=== PATIENT | female | born 1975 | race Hispanic/Latino ===

== ENCOUNTER 2020-01-17 18:29 | Emergency (ER) | payer BC ==
[~2020-01-17 18:29] MED LIST: Iopamidol-370 76% 500 ML 1 ML ONE
--- NOTE | 2020-01-17 18:53 | RAD ---
EXAM: Single view of the chest HISTORY: Chest pain COMPARISON: 10/11/2019 FINDINGS: Single view of the chest shows a normal sized cardiomediastinal silhouette. Increased inte rstitial lung markings are present. There is no evidence of consolidation, mass, or pleural effusion. No acute osseous abnormality. Cholecystectomy clips are seen. IMPRESSION: No evidence of acute cardiopulmonary disease
[2020-01-17 19:03] LABS: #Eosinphils 0.1 thou/uL (0.0-0.7); #Lymphocytes 2.7 thou/uL (1.20-3.40); #Monocytes 0.7 thou/uL (0.11-0.59); #Neutrophils 8.5 thou/uL (1.40-6.50); %Basophils 0.4 % (0.0-1.0); %Eosinophils 0.7 % (0.0-10.0); %Lymphocytes 22.2 % (21.0-51.0); %Monocytes 6.1 % (0.0-10.0); %Neutrophils 70.6 % (42.0-75.0); Hemoglobin 13.1 g/dL (12.0-16.0); Mean Corpuscular HGB CONC 33.1 g/dL (32.0-36.0); Mean Corpuscular Hemoglobin 30.5 pg (27.0-31.0); Mean Corpuscular Volume 92.3 fL (78.0-98.0); Mean Platelet Volume 8.2 fL (7.4-10.4); Platelet Count 309 thou/uL (130-400); RBC Distribution Width 11.9 % (11.5-14.5)
[2020-01-17 19:25] LABS: ALT (SGPT) 19 U/L (8-55); AST (SGOT) 20 U/L (5-34); Albumin 4.3 g/dL (3.5-5.0); Alkaline Phosphatase 84 U/L (40-110); Anion Gap 11 mmol/L (10-20); BUN (Urea Nitrogen) 10 mg/dL (7.0-18.7); Bilirubin, Total 0.2 mg/dL (0.2-1.2); CK (CPK) 140 U/L (29-168); Calc. Creatinine Clearance 0 mL/min (70-130); Carbon Dioxide 27 mmol/L (22-29); Chloride 106 mmol/L (98-107); Estimated GFR-MDRD 85; Globulin 4.1 g/dL (2.4-3.5); Glucose 107 mg/dL (70-105); Potassium 3.4 mmol/L (3.5-5.1); Protein, Total 8.4 g/dL (6.0-8.3); Sodium 141 mmol/L (136-145)
[2020-01-17 21:32] LABS: BHCG - Serum Negative (NEGATIVE); Pregs Control Background? CLEAR/WHITE (CLR/WHITE); Pregs Control Bar Appear? YES (CONTROL BAR)
--- NOTE | 2020-01-17 22:03 | CT ---
EXAM: CTA of the chest HISTORY: Chest pain and difficulty breathing COMPARISON: None TECHNIQUE: Multiple contiguous axial images were obtained a CTA of the chest with contrast per pulmon vicky embolism protocol. 3-D oblique MIP reformats and direct coronal reformats were performed. FINDINGS: HEART: Normal in size without focal cardiac abnormality. PULMONARY ARTERIES: Normal in caliber without filling defects to suggest pulmonary emboli. MEDIASTINUM: No hilar or mediastinal lymphadenopathy. LUNGS: No focal infiltrates or masses. PLEURAL SPACE: No pleural effusion or pneumothorax. CHEST WALL SOFT TISSUES: Unremarkable VISUALIZED OSSEOUS STRUCTURES: No acute abnormality. VISUALIZED SUBDIAPHRAGMATIC STRUCTURES: Status post cholecystectomy. IMPRESSION: No evidence of pulmonary thromboembolism
== END 2020-01-17 22:23 | disposition home or self-care (01) ==
LOC: ERS 18:29
DX: R07.89 Other chest pain (principal); R00.2 Palpitations
CPT/HCPCS: 36415; 71045; 71275; 80053; 82550; 84484; 84703; 85025; 85379; 93005; 94760; Q9967

== ENCOUNTER 2020-03-06 23:39 | Emergency (ER) | payer BC ==
[2020-03-07] MEDS ORDERED: Lorazepam 2 MG/ML VIAL ONE (00:22)
--- NOTE | 2020-03-07 08:04 | RAD ---
PORTABLE CHEST: HISTORY: Chest pain with chest tightness. COMPARISON: 01/17/2020. FINDINGS: Lung miller are clear. No infiltrate or vascular congestion. Heart and mediastinum unremarkable. IMPRESSION: No acute process. POS: [facility]
== END 2020-03-07 01:16 | disposition home or self-care (01) ==
LOC: ERS 23:39
DX: R07.89 Other chest pain (principal)
CPT/HCPCS: 36415; 71045; 84484; 93005; 96374; J2060

== ENCOUNTER 2020-07-16 14:16 | Emergency (ER) | payer OTHER, BC ==
[2020-07-16] MEDS ORDERED: HYDROcodone/Acetaminophen 10/325 mg Tablet ONE (14:38)
[2020-07-16] MEDS ORDERED: Bacitracin 1 PK ONE (15:59)
== END 2020-07-16 16:14 | disposition home or self-care (01) ==
LOC: ERS 14:16
DX: S01.25XA Open bite of nose, initial encounter (principal); S01.85XA Open bite of other part of head, initial encounter; W54.0XXA Bitten by dog, initial encounter; Z79.899 Other long term (current) drug therapy; I10 Essential (primary) hypertension
CPT/HCPCS: 99283